=== PATIENT | female | born 1965 | race Caucasian/White ===

== ENCOUNTER 2017-04-15 17:11 | Emergency (ER) | payer OTHER ==
[~2017-04-15] VITALS: Ht 167.6 cm; Wt 93.0 kg
[2017-04-15] MEDS ORDERED: SODIUM CHLORIDE 0.9% 1,000ML IVBOLUS ONE (17:30)
[2017-04-15] MEDS ORDERED: SODIUM CHLORIDE FLUSH 10ML SYR IVF ONE (17:30)
[2017-04-15 17:54] LABS: HEMOGLOBIN 15.2 g/dL (11.7-16.4); WHITE BLOOD COUNT 8.8 x10^3/uL (3.4-10)
[2017-04-15 17:58] LABS: BLOOD UREA NITROGEN 17 mg/dL (7-18)
[2017-04-15 19:30] VITALS: BP 107/57
== END 2017-04-15 19:33 | disposition home or self-care (01) ==
LOC: ED 19:27
DX: N92.4 Excessive bleeding in the premenopausal period (principal); D25.1 Intramural leiomyoma of uterus
CPT/HCPCS: 36415; 76830; 80048; 82040; 84703; 85025; 85610; 99285

== ENCOUNTER → 2017-05-15 | Outpatient (CLI) | payer OTHER ==
[~2017-05-15] MED LIST: ALPR1TAB2 PO; IBUP-1222 PO; IBUP200C8 PO; MUSCLE RELAXANT
[2017-05-15 09:49] LABS: HEMATOCRIT 45.7 % (34.6-47.8); HEMOGLOBIN 15.6 g/dL (11.7-16.4); WHITE BLOOD COUNT 6.8 x10^3/uL (3.4-10)
[2017-05-15 10:17] LABS: ASPARTATE AMINO TRANSFERASE 17 U/L (15-37); BLOOD UREA NITROGEN 14 mg/dL (7-18)
== END | disposition home or self-care (01) ==
LOC: STAR 08:29
PROVIDERS: ATTEND Obstetrics & Gynecology
DX: Z01.818 Encounter for other preprocedural examination (principal); N92.0 Excessive and frequent menstruation with regular cycle; D25.9 Leiomyoma of uterus, unspecified; J84.10 Pulmonary fibrosis, unspecified; R91.8 Other nonspecific abnormal finding of lung field
CPT/HCPCS: 36415; 71020; 80053; 81003; 84702; 85025; 86803; 93005

== ENCOUNTER 2017-05-23 12:29 | Observation (INO) | payer OTHER ==
[~2017-05-23] VITALS: Ht 167.6 cm; Wt 90.0 kg
[2017-05-23] MEDS ORDERED: FENTANYL PF 100 MCG/2ML ONE ×3 (12:33→12:34)
[2017-05-23] MEDS ORDERED: ROCURONIUM 10 MG/ML ONE (12:33)
[2017-05-23] MEDS ORDERED: PROPOFOL 10 MG/ML, 20ML ONE (12:33)
[2017-05-23] MEDS ORDERED: DEXAMETHASONE 4 MG/ML, 1ML ONE (12:33)
[2017-05-23] MEDS ORDERED: MIDAZOLAM 1 MG/ML, 2ML ONE (12:34)
[2017-05-23] MEDS ORDERED: GLYCOPYRROLATE 0.4 MG/2 ML, 2ML ONE (12:34)
[2017-05-23] MEDS ORDERED: LACTATED RINGERS 1,000 ML IV SCH (13:15)
[2017-05-23 13:26] VITALS: BP 131/84
[2017-05-23] MEDS ORDERED: ACETAMINOPHEN 500 MG TABLET PO ONE (13:30)
[2017-05-23] MEDS ORDERED: GABAPENTIN 300 MG CAPSULE PO ONE (13:30)
[2017-05-23 13:38] LABS: HCG UR LOT HCG7030192
[2017-05-23 13:43] LABS: HCG UR OBC PASS
[2017-05-23] MEDS ORDERED: OxyconTIN ER 10 MG TAB.ER ONE (14:09)
[2017-05-23] MEDS ORDERED: OxyconTIN ER 10 MG TAB.ER PO SCH (14:30)
[2017-05-23] MEDS ORDERED: BUPIVACAINE/PF 0.25% ONE ×2 (14:32→14:42)
[2017-05-23] MEDS ORDERED: FLUORESCEIN SODIUM 500 MG/5 ML ONE ×2 (14:33→14:42)
[2017-05-23] MEDS ORDERED: EPINEPHRINE 1 MG/ML, 1ML ONE ×2 (14:33→14:43)
[2017-05-23] MEDS ORDERED: LIDOCAINE PF 2%, 5ML ONE (14:41)
[2017-05-23] MEDS ORDERED: CEFAZOLIN 1,000 MG ONE (14:41)
[2017-05-23] MEDS ORDERED: EPHEDRINE 50 MG/ML, 1ML IVPush PRN (16:00)
[2017-05-23] MEDS ORDERED: LABETALOL 5MG/ML, 20ML IV PRN (16:00)
[2017-05-23] MEDS ORDERED: morphine SULFATE 10 MG/ML, 1ML IV PRN (16:00)
[2017-05-23] MEDS ORDERED: OXYcodone 5 MG/5 ML ORAL.SOL UDC PO PRN ×2 (16:00→18:30)
[2017-05-23] MEDS ORDERED: HYDROmorphone 1 MG/ML, 1ML IV PRN (16:00)
[2017-05-23] MEDS ORDERED: ONDANSETRON 2MG/ML, 2ML IVPush PRN (16:00)
[2017-05-23] MEDS ORDERED: ALBUTEROL SULFATE 2.5 MG/3 ML NPPB PRN (16:00)
[2017-05-23] MEDS ORDERED: MEPERIDINE/PF 25MG/0.5ML IVPush PRN (16:00)
[2017-05-23] MEDS ORDERED: KETOROLAC 30 MG/1 ML IV PRN ×2 (16:00→18:30)
[2017-05-23] MEDS ORDERED: HYDROcodone/APAP 7.5-325MG/15ML UDC PO PRN (16:00)
[2017-05-23] MEDS ORDERED: FENTANYL PF 100 MCG/2ML IV PRN (16:00)
[2017-05-23] MEDS ORDERED: METOCLOPRAMIDE 5 MG/ML, 2ML IV PRN (16:00)
[2017-05-23] MEDS ORDERED: MIDAZOLAM 1 MG/ML, 2ML IV PRN (16:00)
[2017-05-23] MEDS ORDERED: D5%-LACTATED RINGERS 1,000 ML IV SCH (18:30)
[2017-05-23] MEDS ORDERED: ONDANSETRON 2MG/ML, 2ML IV PRN (18:30)
[2017-05-23] MEDS ORDERED: IBUPROFEN 600 MG TABLET PO SCH (21:00)
== END 2017-05-23 20:40 | disposition home or self-care (01) ==
LOC: OUT 12:29 → 4NOR 17:38 → OUT 17:40 → 4NOR 17:40
PROVIDERS: ADMIT Obstetrics & Gynecology; ATTEND Obstetrics & Gynecology
DX: N92.0 Excessive and frequent menstruation with regular cycle (principal); D25.9 Leiomyoma of uterus, unspecified; N73.6 Female pelvic peritoneal adhesions (postinfective); J84.10 Pulmonary fibrosis, unspecified; F32.9 Major depressive disorder, single episode, unspecified; F41.9 Anxiety disorder, unspecified; R32 Unspecified urinary incontinence; K59.00 Constipation, unspecified; N95.1 Menopausal and female climacteric states; Z80.3 Family history of malignant neoplasm of breast; Z82.3 Family history of stroke; Z82.49 Family history of ischemic heart disease and other diseases of the circulatory system; Z83.3 Family history of diabetes mellitus; Z87.891 Personal history of nicotine dependence
CPT/HCPCS: 36415; 52000; 58552; 81025; 84702; 86480; 88307; G0378; J0171; J0690; J1100; J2250; J2704; J3010; J3490; J7120

== ENCOUNTER 2018-11-04 15:35 | Emergency (ER) | payer OTHER ==
--- NOTE | 2018-11-04 15:51 | NUR ---
PT CHOSE TO LEAVE
== END 2018-11-04 15:52 | disposition left against medical advice (07) ==
LOC: ED 15:46
DX: M54.9 Dorsalgia, unspecified (principal); Z53.21 Procedure and treatment not carried out due to patient leaving prior to being seen by health care provider

== ENCOUNTER 2019-03-27 13:29 | Emergency (ER) | payer OTHER ==
[~2019-03-27] VITALS: Ht 167.6 cm; Wt 94.3 kg
--- NOTE | 2019-03-27 14:10 | NUR ---
PT AMULATORY TO ROOM T1 W/ C/O L FOOT SWELLING, HEAT, REDNESS X 5 DAYS. DENIES INJURY TO FOOT. DENIES HX DM 2, GOUT. PT ALSO HAS C/O L SHOULDER PAIN. [facility]. VSS. ERP DR. SHEFFIELD AT BEDSIDE.
[2019-03-27 15:04] LABS: BASOPHILS # (AUTO) 0.03 x10^3/uL (0-0.1); BASOPHILS % (AUTO) 0 % (0-1); EOSINOPHILS # (AUTO) 0.15 x10^3/uL (0-0.4); EOSINOPHILS % (AUTO) 2 % (1-7); LYMPHOCYTES # (AUTO) 2.55 x10^3/uL (1-3.4); LYMPHOCYTES % (AUTO) 33 % (22-44); MD NO; MEAN CORPUSCULAR HGB CONC 33.8 g/dL (32.4-35.8); MEAN CORPUSCULAR VOLUME 97.8 fL (80-100); MEAN PLATELET VOLUME 8.4 fL (7.4-10.4); MONOCYTES # (AUTO) 0.52 x10^3/uL (0.2-0.8); MONOCYTES % (AUTO) 7 % (2-9); NEUTROPHILS # (AUTO) 4.59 x10^3/uL (1.8-6.8); NEUTROPHILS % (AUTO) 59 % (42-75); PLATELET COUNT 237 x10^3/uL (130-400); RED BLOOD COUNT 4.97 x10^6/uL (3.82-5.3); RED CELL DISTRIBUTION WIDTH 13.7 % (9.6-15.2)
[2019-03-27 15:10] LABS: ALBUMIN 3.8 g/dL (3.4-5.0); ANION GAP 5 mmol/L (5-15); CALCIUM 9.5 mg/dL (8.5-10.1); CHLORIDE 110 mmol/L (98-107)
[2019-03-27 15:15] LABS: ALANINE AMINOTRANSFERASE 43 U/L (12-78); ALKALINE PHOSPHATASE 184 U/L (45-117); BILIRUBIN,TOTAL 0.3 mg/dL (0.2-1.0); CREATININE 0.91 mg/dL (0.55-1.02); TOTAL PROTEIN 7.6 g/dL (6.4-8.2); TROPONIN I < 0.015 ng/mL (0.000-0.045)
[2019-03-27 15:17] VITALS: BP 128/69
--- NOTE | 2019-03-27 15:17 | NUR ---
PT RESTING ON GURNEY. NADN. HAIRSTON.
--- NOTE | 2019-03-27 15:55 | NUR ---
meter engineer: Patient approaches charge desk stating "I just need my paperwork, she was in my room and talked to me but I had too many questions so she went to get the doctor but I don't care, I just want my prescriptions and I want to leave." Patient declines further discussion related to discharge instructions. Patient ambulates with steady gait to discharge desk in no acute distress.
== END 2019-03-27 15:58 | disposition home or self-care (01) ==
LOC: ED 15:00
DX: L03.115 Cellulitis of right lower limb (principal); M25.512 Pain in left shoulder; M79.622 Pain in left upper arm; F17.200 Nicotine dependence, unspecified, uncomplicated
CPT/HCPCS: 36415; 71045; 72050; 80053; 84484; 85025; 93005; 99284

== ENCOUNTER 2019-07-03 15:29 | Emergency (ER) | payer OTHER ==
[~2019-07-03] VITALS: Ht 167.6 cm; Wt 94.7 kg
[2019-07-03 16:45] LABS: BASOPHILS % (AUTO) 0 % (0-1); EOSINOPHILS % (AUTO) 3 % (1-7); LYMPHOCYTES # (AUTO) 0.37 x10^3/uL (1-3.4); LYMPHOCYTES % (AUTO) 3 % (22-44); MD NO; MEAN CORPUSCULAR HEMOGLOBIN 32.2 pg (27.0-34.8); MEAN CORPUSCULAR HGB CONC 33.3 g/dL (32.4-35.8); MEAN CORPUSCULAR VOLUME 96.8 fL (80-100); MEAN PLATELET VOLUME 7.9 fL (7.4-10.4); MONOCYTES # (AUTO) 0.24 x10^3/uL (0.2-0.8); MONOCYTES % (AUTO) 2 % (2-9); NEUTROPHILS # (AUTO) 10.45 x10^3/uL (1.8-6.8); NEUTROPHILS % (AUTO) 92 % (42-75); PLATELET COUNT 177 x10^3/uL (130-400); RED BLOOD COUNT 5.14 x10^6/uL (3.82-5.3); RED CELL DISTRIBUTION WIDTH 13.4 % (9.6-15.2)
[2019-07-03 16:49] LABS: RAPID INFLUENZA A Negative (Negative); RAPID INFLUENZA B Negative (Negative)
[2019-07-03 16:51] LABS: ALANINE AMINOTRANSFERASE 280 U/L (12-78); ANION GAP 8 mmol/L (5-15); CALCIUM 8.6 mg/dL (8.5-10.1); CHLORIDE 108 mmol/L (98-107); CREATININE 0.97 mg/dL (0.55-1.02)
[2019-07-03 16:53] LABS: ALKALINE PHOSPHATASE 260 U/L (45-117); BILIRUBIN,TOTAL 1.3 mg/dL (0.2-1.0); TOTAL PROTEIN 7.2 g/dL (6.4-8.2)
--- NOTE | 2019-07-03 17:00 | NUR ---
VETERINARIAN ASSISTANT: Patient to room from lobby at this time.
--- NOTE | 2019-07-03 17:01 | NUR ---
md is at the bedside for assessment
[2019-07-03] MEDS ORDERED: ACETAMINOPHEN 325 MG TABLET ONE (17:10)
[2019-07-03] MEDS ORDERED: IBUPROFEN 800 MG TABLET ONE (17:10)
[2019-07-03] MEDS ORDERED: IBUPROFEN 800 MG TABLET PO ONE (17:30)
[2019-07-03] MEDS ORDERED: ACETAMINOPHEN 325 MG TABLET PO ONE (17:30)
--- NOTE | 2019-07-03 17:50 | NUR ---
pt ambulated to the restroom with a steady gait. urine sample provided, and walked to the lab for analysis.
[2019-07-03 18:37] LABS: MICROSCOPIC INDICATED
--- NOTE | 2019-07-03 18:47 | NUR ---
report from marcia martinez. Pt resting with no needs at this time. call light in reach
[2019-07-03 19:04] LABS: CULTURE INDICATED? YES
[2019-07-03 20:04] VITALS: BP 135/76
--- NOTE | 2019-07-03 20:04 | NUR ---
Patient given discharge instructions and they have confirmed that they understand the instructions. Patient ambulatory with steady gait.
== END 2019-07-03 20:12 | disposition home or self-care (01) ==
LOC: ED 18:55
DX: J18.9 Pneumonia, unspecified organism (principal); Z87.891 Personal history of nicotine dependence
CPT/HCPCS: 36415; 71046; 80053; 81001; 85025; 87086; 87400; 99284